=== PATIENT | male | born 1990 | race Caucasian/White ===

== ENCOUNTER 2021-10-13 12:27 | Outpatient (REF) | payer OTHER, SELFPAY ==
[2021-10-13 14:14] LABS: Microalbum/Creatinine Ratio Ur 8.2 ug/mg cr
[2021-10-13 14:21] LABS: Alanine Aminotransferase 15 U/L (0-40); Albumin Level 4.7 g/dL (3.5-5.0); Alkaline Phosphatase 41 U/L (39-117); Anion Gap 17 (12-20); Aspartate Amino Transferase 13 U/L (5-37); Bilirubin Total 0.9 mg/dL (0.0-1.0); Blood Urea Nitrogen 19 mg/dL (9-16); Calcium 9.7 mg/dL (8.4-10.2); Carbon Dioxide 23 mmol/L (22-29); Chloride 105 mmol/L (96-108); Cholesterol 184 mg/dL; Estimated Glomerular Filt Rate > 60; Glucose Fasting 91 mg/dL (60-99); HDL Cholesterol 45 mg/dL; LDL Cholesterol Calculated 126 mg/dl; Potassium 4.7 mmol/L (3.3-5.1); Sodium 140 mmol/L (135-145); Total Protein 7.2 g/dL (6.5-8.0); Triglycerides 67 mg/dL
[2021-10-13 14:35] LABS: Syphilis Screen Nonreactive (Nonreactive)
[2021-10-13 14:42] LABS: TSH reflex Free T4 0.56 uIU/mL (0.32-4.0)
[2021-10-16 04:42] LABS: HBS Num1 5.55 mIU/mL (0-7.99); HBc Num1 0.06 S/CO (0.00-0.79); HBsAGNum1 0.27 S/CO (0.00-0.99); HIV AB/AG Nonreactive (Nonreactive); HIV Num 1 0.08 S/CO (0.00-0.99); Hepatitis B Core Antibody Nonreactive (Nonreactive); Hepatitis B Surface Antigen Negative (Negative); ~HepC Num1 0.09 S/CO (0.00-0.79); ~Hepatitis B Surface Antibody NONREACTIVE (Nonreactive); ~Hepatitis C Antibody Nonreactive (Nonreactive)
== END 2021-10-13 12:28 | disposition home or self-care (01) ==
LOC: HO.WFDLDS 12:27
PROVIDERS: Visit Provider Family Medicine
DX: Z00.00 Encounter for general adult medical examination without abnormal findings (principal); Z11.4 Encounter for screening for human immunodeficiency virus [HIV]; Z11.3 Encounter for screening for infections with a predominantly sexual mode of transmission; I10 Essential (primary) hypertension
CPT/HCPCS: 36415; 80053; 80061; 82043; 84443; 86704; 86706; 86780; 86803; 87340; 87389

== ENCOUNTER 2022-10-23 16:29 | Outpatient (AMB) | payer OTHER, SELFPAY ==
--- NOTE | 2022-10-23 16:38 | MHC.PC.OV ---
Vital Signs 10/23/22 16:39 Height 5 ft 11 in Weight 283 lb 2 oz BMI 39.5 BP 124/74 Blood Pressure Location Lt brachial Position Sitting Pulse 83 Pulse Source Pulse Oximeter Pulse Oximetry (%) 96 Oxygen Delivery Method Room Air Intake Visit Reasons: f/u hypertension and chronic conditions Intake Note: Patient is here to follow up on hypertension and chronic conditions. Patient is concerned about white spot on back of neck after 2 sunburns. Allergies No Known Allergies [No Known Allergies*] Allergy (Verified 10/23/22 16:40) Tobacco use date assessed: 10/23/22 Dental Screening Dental Screen Date: 10/23/22 Did you have a dental visit in the last 12 months?: No Did you have a dental problem in the last 6 months where you did not have access to dental care?: No Was dental information given to patient?: No HPI f/u hypertension and chronic conditions HPI Details 32 y/o male presents to f/u hypertension. Blood pressure today is 124/74. He is on lisinopril 20mg daily. Pt reports a spot on the back of his neck that has been bothering him. [facility] Surgical History No pertinent past surgical history Social History Housing: Apartment Patient Tobacco Use Status: Never used Tobacco e-Cigarette/Vaping Use: Never Used Second Hand Smoke Exposure: No service: No Current occupational status: employed Current occupational exposures/hazards: No Cognitive needs: No Hearing needs: No Vision needs: No Questionnaire PHQ-9 Over the last 2 weeks, how often have you been bothered by any of the following problems? 1. Little interest or pleasure in doing things: not at all 2. Feeling down, depressed, or hopeless: not at all 3. Trouble falling or staying asleep, or sleeping too much: not at all 4. Feeling tired or having little energy: several days 5. Poor appetite or overeating: not at all 6. Feeling bad about yourself - or that you are a failure or have let yourself or your family down: not at all 7. Trouble concentrating on things, such as reading the newspaper or watching television: not at all 8. Moving or speaking so slowly that other people could have noticed. Or the opposite - being so fidgety or restless that you have been moving around a lot more than usual: not at all 9. Thoughts that you would be better off or of hurting yourself in some way: not at all Total score: 1 Source: Developed by Drs. Stone Pabon, Brigid Friedman, Jj Barrientos and colleagues, with an educational mary from [employer]. Thrive Questionnaire Date Thrive assessed: 02/02/22 LANNY-7 AMB Questionnaire LANNY-7 Date LANNY - 7 assessed: 05/10/21 Feeling nervous, anxious, or on edge: 1 = Several days Not being able to stop or control worryin = Not at all Worrying too much about different things: 0 = Not at all Trouble relaxin = Not at all Being so restless that it is hard to sit still: 0 = Not at all Becoming easily annoyed or irritable: 0 = Not at all Feeling afraid as if something awful might happen: 0 = Not at all Total LANNY-7 score (0-4 normal; 5-9 mild; 10-14 moderate; 15-21 severe): 1 Source: Developed by Drs. Stone Pabon, Brigid Friedman, Jj Barrientos and colleagues, with an educational mary from [employer]. Review of Systems Const Denies chills, Denies fatigue, Denies fever(s), Denies headache(s) and Denies weakness ENT Denies dizziness and Denies headache(s) Card Denies chest pain, Denies lightheadedness, Denies dyspnea and Denies other (Palpitations) Resp Denies cough, Denies dyspnea, Denies wheezing and Denies other ( shortness of breath) Musc Denies numbness and Denies tingling Neuro Denies dizziness, Denies headache(s), Denies numbness, Denies tingling, Denies paresthesias and Denies weakness Psych Denies anxiety and Denies depression Endo Denies fatigue Aller/Immun Denies wheezing Physical exam (Primary Care) Vital Signs: Last Vital Signs Pulse 83 10/23/22 16:39 BP 124/74 10/23/22 16:39 Pulse Ox 96 10/23/22 16:39 Oxygen Delivery Method Room Air 10/23/22 16:39 BMI result Body Mass Index 39.5 Tobacco/Smoking Status: Tobacco use Status Tobacco use date assessed 10/23/22 10/23/22 16:43 Patient Tobacco Use Status Never used Tobacco 10/23/22 16:43 e-Cigarette/Vaping Use Never Used 10/23/22 16:43 PHQ-9: PHQ-9 Score PHQ-9: Total score 1 10/23/22 17:19 Thrive Assessment: Date of Thrive Assessment Date Thrive assessed 02/02/22 10/23/22 16:43 Const General: no acute distress and well developed Nutritional Appearance: well nourished Orientation/consciousness: patient oriented x3 HENMT Head: Yes normocephalic and Yes atraumatic Eyes General: appearance normal, both eyes and all related structures Pupils: Equal, round and reactive pupils present EOM: EOMs intact bilaterally Resp Effort & Inspection: normal respiratory effort Auscultation: clear to auscultation bilaterally Cardio Rate: regular rate Rhythm: regular rhythm Heart sounds: S1 normal heart sound present, S2 normal heart sound present, no gallops, no murmurs and no rubs Neuro General: patient oriented x3 and gait normal Cranial nerves: Yes Equal, round and reactive pupils present Psych Affect: normal affect Assessment and Plan Assessment & Plan (1) Essential hypertension: Code(s): I10 - Essential (primary) hypertension Plan: Blood pressure is controlled. Goal is less than 140/90 Continue current medication (2) Difficulty sleeping: Code(s): G47.9 - Sleep disorder, unspecified Plan: Controlled with trazodone Continue trazodone. (3) Sebaceous cyst: Code(s): L72.3 - Sebaceous cyst Plan: Can use warm compresses. He will let me know if this worsens/changes in any way. Medications: Changed From lisinopril 20 mg PO DAILY 30 tabs 0RF I10 - Essential (primary) hypertension To lisinopril 20 mg PO DAILY 90 tabs 2RF 90 days I10 - Essential (primary) hypertension Coding Level of Care Code Est Pt Level 4 (98218) Diagnoses Essential hypertension I10 Difficulty sleeping G47.9 Sebaceous cyst L72.3
[2022-10-23 16:39] VITALS: BP 124/74; PULSE 83; O2SAT 96; BMI 39.5
== END 2022-10-23 17:26 | disposition home or self-care (01) ==
PROVIDERS: PCP Family Medicine; Visit Provider Family Medicine
DX: I10 Essential (primary) hypertension (principal); G47.9 Sleep disorder, unspecified; L72.3 Sebaceous cyst
CPT/HCPCS: 99214

== ENCOUNTER 2023-04-16 11:55 | Outpatient (AMB) | payer OTHER, SELFPAY ==
[2023-04-16 12:05] VITALS: BP 138/74; PULSE 78; O2SAT 98; BMI 39.6
--- NOTE | 2023-04-16 12:05 | A.OFFPC_ITS ---
Vital Signs 04/16/23 12:05 Height 5 ft 11 in Weight 284 lb BMI 39.6 BP 138/74 Blood Pressure Location Lt brachial Position Sitting Pulse 78 Pulse Source Pulse Oximeter Pulse Oximetry (%) 98 Oxygen Delivery Method Room Air Intake Visit Reasons: pain in groin,blood in urine Intake Note: Patient is here with discomfort, and blood with urination. Last night, symptoms started, the blood was kind of clotted, too. Allergies No Known Allergies [No Known Allergies*] Allergy (Verified 04/16/23 12:07) Tobacco use date assessed: 04/16/23 HPI pain in groin,blood in urine HPI Details 33 y/o male presents with complaints of pain in groin and blood in urine. Pt reports symptoms started last night but had been having discomfort for 4 weeks now. Pt reports pain at the end of urination and pain at the tip of the penis. He describes blood in urine. [facility] Surgical History No pertinent past surgical history Social History Housing: Apartment Patient Tobacco Use Status: Never used Tobacco e-Cigarette/Vaping Use: Never Used Second Hand Smoke Exposure: No service: No Current occupational status: employed Current occupational exposures/hazards: No Cognitive needs: No Hearing needs: No Vision needs: No Questionnaire PHQ-9 Over the last 2 weeks, how often have you been bothered by any of the following problems? 1. Little interest or pleasure in doing things: not at all 2. Feeling down, depressed, or hopeless: not at all 3. Trouble falling or staying asleep, or sleeping too much: not at all 4. Feeling tired or having little energy: not at all 5. Poor appetite or overeating: not at all 6. Feeling bad about yourself - or that you are a failure or have let yourself or your family down: not at all 7. Trouble concentrating on things, such as reading the newspaper or watching television: not at all 8. Moving or speaking so slowly that other people could have noticed. Or the opposite - being so fidgety or restless that you have been moving around a lot more than usual: not at all 9. Thoughts that you would be better off or of hurting yourself in some way: not at all Total score: 0 Source: Developed by Drs. Stone Pabon, Brigid Friedman, Jj Barrientos and colleagues, with an educational mary from [employer]. Thrive Questionnaire Date Thrive assessed: 02/02/22 AUDIT C Alcohol Use Questionnaire (AUDIT-C) 1. How often do you have a drink containing alcohol?: 2-3 times a week 2. How many drinks containing alcohol do you have on a typical day when you are drinking?: 1 or 2 3. How often do you have six or more drinks on one occasion?: Never Total Score: 3 LANNY-7 AMB Questionnaire LANNY-7 Date LANNY - 7 assessed: 04/16/23 Feeling nervous, anxious, or on edge: 0 = Not at all Not being able to stop or control worryin = Not at all Worrying too much about different things: 0 = Not at all Trouble relaxin = Not at all Being so restless that it is hard to sit still: 0 = Not at all Becoming easily annoyed or irritable: 0 = Not at all Feeling afraid as if something awful might happen: 0 = Not at all Total LANNY-7 score (0-4 normal; 5-9 mild; 10-14 moderate; 15-21 severe): 0 Source: Developed by Drs. Stone Pabon, Brigid Friedman, Jj Barrientos and colleagues, with an educational mary from [employer]. Physical exam (Primary Care) Vital Signs: Last Vital Signs Pulse 78 04/16/23 12:05 BP 138/74 04/16/23 12:05 Pulse Ox 98 04/16/23 12:05 Oxygen Delivery Method Room Air 04/16/23 12:05 BMI result Body Mass Index 39.6 Tobacco/Smoking Status: Tobacco use Status Tobacco use date assessed 04/16/23 04/16/23 12:08 Patient Tobacco Use Status Never used Tobacco 04/16/23 12:08 e-Cigarette/Vaping Use Never Used 04/16/23 12:08 PHQ-9: PHQ-9 Score PHQ-9: Total score 0 04/16/23 12:13 Thrive Assessment: Date of Thrive Assessment Date Thrive assessed 02/02/22 04/16/23 12:08 Results AMB Urinalysis Dipstick UR Leukocytes Negative Last Edit by Janae Hooper CMA on 04/16/23 12:23 UR Nitrite Negative Last Edit by Janae Hooper CMA on 04/16/23 12:23 UR Urobilinogen Normal Last Edit by Janae Hooper CMA on 04/16/23 12:23 UR Protein 100 Last Edit by Janae Hooper CMA on 04/16/23 12:23 UR Ph 7.0 Last Edit by Janae Hooper CMA on 04/16/23 12:23 UR Blood Hemolyzed Last Edit by Janae Hooper CMA on 04/16/23 12:23 UR Specific [place] 1.020 Last Edit by Janae Hooper CMA on 04/16/23 12:2 3 UR Ketone Negative Last Edit by Janae Hooper CMA on 04/16/23 12:23 UR Bilirubin Negative Last Edit by Janae Hooper CMA on 04/16/23 12:23 UR Glucose Negative Last Edit by Janae Hooper CMA on 04/16/23 12:23 Assessment and Plan Assessment & Plan (1) Hematuria: Code(s): R31.9 - Hematuria, unspecified Plan: Gross?hematuria?with?clots?at?home. Urine?dipstick?today?somewhat?unremarkable. Given?symptoms?of?discomfort?and?blood?however,?will?send?urine?for?analysis. Start?patient?on?antibiotic?and?give?him?Flomax.??Increase?hydration.??Likely?st one. He?will?go?to?the?ED?if?having?worsening?symptoms. Follow-up?next?week. May?need?imaging?or?referral?to?urology. (2) Dysuria: Code(s): R30.0 - Dysuria Orders: Orders Urine Dipstick Today R31.9 - Hematuria, unspecified UA and rflx microscopic Today R31.9 - Hematuria, unspecified, Z00.00 - Encounter for general adult medical examination without abnormal findings AMB Urinalysis Dipstick Today R31.9 - Hematuria, unspecified Urine Culture Today R31.9 - Hematuria, unspecified Urine Cytology Today R31.9 - Hematuria, unspecified Medications: New sulfamethoxazole-trimethoprim 800-160 mg (Bactrim DS) 1 tab PO Q12H 7 days 14 tabs 0RF tamsulosin (Flomax) 0.4 mg PO DAILY 7 days 7 caps 0RF Coding Level of Care Code Est Pt Level 3 (58594) Diagnoses Hematuria R31.9 Dysuria R30.0
== END 2023-04-16 12:34 | disposition home or self-care (01) ==
PROVIDERS: PCP Family Medicine; Visit Provider Family Medicine
DX: R31.9 Hematuria, unspecified (principal); R30.0 Dysuria
CPT/HCPCS: 81002; 99213

== ENCOUNTER 2023-04-16 12:04 | Outpatient (REF) | payer OTHER, SELFPAY ==
[2023-04-16 15:48] LABS: Appearance Urine Clear; Color Urine Yellow; Glucose Urine UA Negative (Negative); Leukocyte Esterase Urine Negative (Negative); Nitrite Urine Negative (Negative); UMIC TRIGGER UA YES; Urine Blood Trace (Negative); Urine Ketones Negative (Negative); Urine Protein 30 (1+) mg/dL (Neg-Trace)
[2023-04-16 16:31] LABS: RBC Urine 0-2 /HPF (0-2)
[2023-04-16 16:32] LABS: Bacteria Urine 1+ (None Seen); Hyaline Casts Urine 0-2 /LPF (0-2)
[2023-04-17 07:09] LABS: Urine Cytology See Pathology rpt
== END 2023-04-16 12:05 | disposition home or self-care (01) ==
LOC: HO.LAB 12:04
PROVIDERS: Visit Provider Family Medicine
DX: R31.9 Hematuria, unspecified (principal)
CPT/HCPCS: 81001; 87086; 88112

== ENCOUNTER 2023-04-24 13:45 | Outpatient (AMB) | payer SELFPAY ==
[2023-04-24 13:57] VITALS: BP 120/66; PULSE 69; O2SAT 97; BMI 42.0
--- NOTE | 2023-04-24 13:57 | MHC.PC.OV ---
Vital Signs 04/24/23 13:57 Height 5 ft 11 in Weight 301 lb BMI 42.0 BP 120/66 Blood Pressure Location Lt brachial Position Sitting Pulse 69 Pulse Source Pulse Oximeter Pulse Oximetry (%) 97 Oxygen Delivery Method Room Air Intake Visit Reasons: f/u hematuria/dysuria Intake Note: Patient is here to follow up on hematuria/dysuria, states he is feeling better since the last time we saw him. Allergies No Known Allergies [No Known Allergies*] Allergy (Verified 04/24/23 13:59) Tobacco use date assessed: 04/24/23 HPI f/u hematuria/dysuria HPI Details 33 y/o male presents to f/u hematuria/dysuria. Urine studies negative for infection. Urine cytology negative. Pt reports hematuria has resolved. PFSH Surgical History No pertinent past surgical history Social History Housing: Apartment Patient Tobacco Use Status: Never used Tobacco e-Cigarette/Vaping Use: Never Used Second Hand Smoke Exposure: No service: No Current occupational status: employed Current occupational exposures/hazards: No Cognitive needs: No Hearing needs: No Vision needs: No Questionnaire Thrive Questionnaire Date Thrive assessed: 02/02/22 LANNY-7 AMB Questionnaire LANNY-7 Date LANNY - 7 assessed: 04/16/23 Source: Developed by Drs. Stone Pabon, Brigid Friedman, Jj Barrientos and colleagues, with an educational mary from [employer]. Physical exam (Primary Care) Vital Signs: Last Vital Signs Pulse 69 04/24/23 13:57 BP 120/66 04/24/23 13:57 Pulse Ox 97 04/24/23 13:57 Oxygen Delivery Method Room Air 04/24/23 13:57 BMI result Body Mass Index 42.0 Tobacco/Smoking Status: Tobacco use Status Tobacco use date assessed 04/24/23 04/24/23 14:02 Patient Tobacco Use Status Never used Tobacco 04/24/23 14:02 e-Cigarette/Vaping Use Never Used 04/24/23 14:02 Thrive Assessment: Date of Thrive Assessment Date Thrive assessed 02/02/22 04/24/23 14:02 Assessment and Plan Assessment & Plan (1) Hematuria: Code(s): R31.9 - Hematuria, unspecified Plan: Single?episode?of?hematuria. Urine?studies?negative?for?infection Urine?cytology?negative Unclear?cause?but?hematuria?has?resolved. Possibly?passed?a?stone.??No?further?symptoms.??He?can?discontinue?Flomax.??I?advised?he?continue?hydrating?well. He?can?call?or?return?to?office?if?any?new?symptoms. (2) Dysuria: Code(s): R30.0 - Dysuria Plan: Patient?had?some?discomfort?at?the?tip?of?his?penis Urine?studies?negative?for?infection Symptoms?have?resolved Call?or?return?to?office?if?symptoms?resume Coding Level of Care Code Est Pt Level 3 (52181) Diagnoses Hematuria R31.9 Dysuria R30.0
== END 2023-04-24 15:04 | disposition home or self-care (01) ==
PROVIDERS: PCP Family Medicine; Visit Provider Family Medicine
DX: R31.9 Hematuria, unspecified (principal); R30.0 Dysuria
CPT/HCPCS: 99213

== ENCOUNTER 2024-04-07 12:11 | Outpatient (AMB) | payer OTHER, SELFPAY ==
[2024-04-07 12:37] VITALS: BP 148/90; PULSE 84; O2SAT 97; BMI 42.2
--- NOTE | 2024-04-07 12:37 | MHC.OFFWIV ---
Intake Vital Signs 04/07/24 12:37 Height 5 ft 11 in Weight 302 lb 4 oz BMI 42.2 BP 148/90 H Blood Pressure Location Lt brachial Position Sitting Pulse 84 Pulse Source Pulse Oximeter Pulse Oximetry (%) 97 Oxygen Delivery Method Room Air Intake Visit Reasons: EP WC back pain, hurt at work Intake Note: Pt presents to the office today for c/o back pain x5 days after turning and bending at work. Patient Tobacco Use Status: Never used Tobacco Allergies No Known Allergies [No Known Allergies*] Allergy (Verified 04/07/24 12:43) HPI HPI Comments History of Present Illness Details History of Present Illness - The patient is a 34-year-old male presenting with acute low back pain and potential lumbar radiculopathy. - Pain onset was five days ago following a physical maneuver at work, characterized by bending and turning, resulting in sharp, acute pains across the lower back. - Symptoms include episodic sharp, shooting pain radiating to the legs and central back area with no prior history of similar episodes. - Alleviating factors have been ibuprofen and topical analgesics with varying degrees of temporary effectiveness. - There are no accompanying bladder or bowel disturbances. Physical Exam General: Cooperative, healthy appearing, comfortable, no acute distress and well developed Orientation: Patient oriented x3 Limitations: Limited mobility and lots of sharp pains Head: Normal to inspection Ears: Hearing grossly normal bilaterally Nose: Normal external nose present Face and sinus: Normal facial exam Eyes: Appearance normal, both eyes and all related structures Neck: Normal visual inspection and Yes full ROM Respiratory: Normal respiratory effort and able to speak in complete sentences. Skin: No rashes or lesions noted Neuro: Patient oriented x3 Extremities: Normal to inspection [facility] Surgical History No pertinent past surgical history Social History Housing: Apartment Patient Tobacco Use Status: Never used Tobacco e-Cigarette/Vaping Use: Never Used Second Hand Smoke Exposure: No service: No Current occupational status: employed Current occupational exposures/hazards: No Cognitive needs: No Hearing needs: No Vision needs: No Review of Systems Const All systems reviewed & are unremarkable except as noted in HPI and below Physical Exam Vital Signs: Last Vital Signs Pulse 84 04/07/24 12:37 BP 148/90 H 04/07/24 12:37 Pulse Ox 97 04/07/24 12:37 Oxygen Delivery Method Room Air 04/07/24 12:37 BMI result Body Mass Index 42.2 Back/Spine/Pelvis Cervical Spine: cervical ROM normal, No cervical muscular tenderness and No Cervical spine tenderness Thoracic/Lumbar Spine: paraspinal muscle tenderness bilaterally, No thoracic spinal tenderness and No lumbar spinal tenderness Assessment & Plan Assessment & Plan (1) Low back pain: Code(s): M54.50 - Low back pain, unspecified Qualifiers: Chronicity: acute Back pain laterality: bilateral Sciatica presence: with sciatica Sciatica laterality: bilateral sciatica Qualified Code(s): M54.42 - Lumbago with sciatica, left side; M54.41 - Lumbago with sciatica, right side Plan: Will write work note for 5 days. Plan The treatment plan for the patient's acute low back pain with potential lumbar radiculopathy includes a short course of prednisone to address inflammation and when that is complete, he should start Aleve PRN for continued pain management. The patient is instructed not to overlap these medications to avoid adverse effects such as GI bleeding but he does not have a history of this so less likely to be an issue. A muscle relaxant is prescribed for night-time use to manage associated muscle spasms, with guidance to avoid activities requiring alertness. Topical treatments like Icy Hot can be used as necessary. The patient is informed of the importance of monitoring for any changes in bladder or bowel function that would necessitate emergency care. An evaluation for potential workplace injury and communication with his employer is advised to facilitate appropriate occupational health intervention. A note for recent work absences will be provided with an option for extended duration to be coordinated with his primary care provider. Patient was informed and verbally consented to the use of an ambient scribe for clinic note documentation during this visit. Medications: New prednisone 40 mg (2 x 20 mg) PO DAILY 10 tabs 0RF cyclobenzaprine 5 mg PO Q8H PRN 10 tabs 0RF Muscle Spasm Coding Level of Care Code Est Pt Level 3 (04536) Diagnoses Acute bilateral low back pain with bilateral sciatica M54.42; M54.41 Chronicity: acute Back pain laterality: bilateral Sciatica presence: with sciatica Sciatica laterality: bilateral sciatica
== END 2024-04-07 13:47 | disposition home or self-care (01) ==
PROVIDERS: PCP Family Medicine; Visit Provider Physician Assistant
DX: M54.42 Lumbago with sciatica, left side (principal); M54.41 Lumbago with sciatica, right side

== ENCOUNTER → 2024-04-07 12:11 | Outpatient (BNVA) | payer OTHER, SELFPAY | PROVIDERS: PCP Family Medicine; Visit Provider Physician Assistant | DX: M54.42 Lumbago with sciatica, left side (principal); M54.41 Lumbago with sciatica, right side | CPT/HCPCS: 99212 ==

== ENCOUNTER 2024-06-08 11:27 | Outpatient (AMB) | payer OTHER, SELFPAY ==
--- NOTE | 2024-06-08 12:34 | A.OFFPC_ITS ---
Vital Signs 06/08/24 12:37 Height 5 ft 11 in Weight 307 lb 4 oz BMI 42.8 BP 160/90 H Blood Pressure Location Rt brachial Position Sitting Respiration 14 Pulse 75 Pulse Source Pulse Oximeter Temp 98.9 F Temp Source Oral Pulse Oximetry (%) 97 Oxygen Delivery Method Room Air Intake Visit Reasons: back pain clearance Intake Note: Patient is scheduled to follow up for workers comp due to a back injury at work Credit Rating Checker Required: No Allergies No Known Allergies [No Known Allergies*] Allergy (Verified 06/08/24 12:35) Medication List - Last Reconciled 06/08/24 by Stephan Miller MD cyclobenzaprine 5 mg PO Q8H PRN lisinopril 20 mg PO DAILY 90 days prednisone 40 mg (2 x 20 mg) PO DAILY trazodone 1-1.5 tabs orally bedtime PRN; 30 days Tobacco use date assessed: 04/24/23 Dental Screening Dental Screen Date: 10/23/22 HPI back pain clearance HPI Details 34 y/o male presents to f/u low back cheryl n, potential lumbar radiculopathy. Had seen the walk-in for this 04/07/24. Was given prednisone, cyclobenzaprine. Blood pressure today elevated at 160/90, 75p. He is on lisinopril 20mg daily. Back injury at work 04/03/24. Sweeping and turned wrong . Couldn't move for 3 days. Went to walk-in 04/07/24. Given steroid and muscle relaxer. Slowly improved. Now doing well. R thigh numbness HPI Comments History of Present Illness Details Documentation assistance for Stephan Miller MD, was provided by David Varner,? Sewer And Drain Technician on 06/08/2024 at 12:45 PM EST. I, Dr. Miller, have read, observed, and verified documentation. ?? [facility] Surgical History No pertinent past surgical history Social History Housing: Apartment Patient Tobacco Use Status: Never used Tobacco e-Cigarette/Vaping Use: Never Used Second Hand Smoke Exposure: No service: No Current occupational status: employed Current occupational exposures/hazards: No Cognitive needs: No Hearing needs: No Vision needs: No Questionnaire PHQ-9 Over the last 2 weeks, how often have you been bothered by any of the following problems? 1. Little interest or pleasure in doing things: not at all 2. Feeling down, depressed, or hopeless: not at all 3. Trouble falling or staying asleep, or sleeping too much: not at all 4. Feeling tired or having little energy: not at all 5. Poor appetite or overeating: not at all 6. Feeling bad about yourself - or that you are a failure or have let yourself or your family down: not at all 7. Trouble concentrating on things, such as reading the newspaper or watching television: not at all 8. Moving or speaking so slowly that other people could have noticed. Or the opposite - being so fidgety or restless that you have been moving around a lot more than usual: not at all 9. Thoughts that you would be better off or of hurting yourself in some way: not at all Total score: 0 Depression Screening Interpretation: Negative Depression Screening Done: Yes 74618 - PHQ-9 Billing: Yes Source: Developed by Drs. Stone Pabon, Brigid Friedman, Jj Barrientos and colleagues, with an educational mary from [employer]. Thrive Questionnaire Date Thrive assessed: 06/08/24 I am a: Patient What is your living situation today?: I have a steady place to live Within the past 12 months, did the food you bought not last and you didn't have the money to get more?: Never true Within the past 12 months, did you worry whether your food would run out before you got money to buy more?: Never true Do you have trouble paying for medicines?: No Do you have trouble getting transportation to medical appointments?: No Do you have trouble paying your heating and electricity bill?: No Do you have trouble taking care of your child, family member or friend?: No Do you have trouble with day-to-day activities such as bathing, preparing meals, shopping, managing finances, etc.?: No Are you currently unemployed and looking for a job?: No Are you interested in more education?: No Please select the resources that you would like help with: None Currently or been in a relationship where the following occur: No concerns reported THRIVE Score: 0 AUDIT C Alcohol Use Questionnaire (AUDIT-C) 1. How often do you have a drink containing alcohol?: 2-4 times a month 2. How many drinks containing alcohol do you have on a typical day when you are drinking?: 3 or 4 3. How often do you have six or more drinks on one occasion?: Never Total Score: 3 Score Reviewed/Action Taken: Yes LANNY-7 AMB Questionnaire LANNY-7 Date LANNY - 7 assessed: 06/08/24 Feeling nervous, anxious, or on edge: 0 = Not at all Not being able to stop or control worryin = Not at all Worrying too much about different things: 0 = Not at all Trouble relaxin = Not at all Being so restless that it is hard to sit still: 0 = Not at all Becoming easily annoyed or irritable: 0 = Not at all Feeling afraid as if something awful might happen: 0 = Not at all Total LANNY-7 score (0-4 normal; 5-9 mild; 10-14 moderate; 15-21 severe): 0 Source: Developed by Drs. Stone Pabon, Brigid Friedman, Jj Barrientos and colleagues, with an educational mary from [employer]. LANNY-7 Assessment Billing LANNY-7 Assessment Tool: LANNY-7 Assessment 62824 Review of Systems Const Denies chills, Denies fatigue, Denies fever(s), Denies headache(s) and Denies weakness ENT Denies dizziness and Denies headache(s) Card Denies dyspnea Resp Denies cough, Denies dyspnea, Denies wheezing and Denies other (shortness of breath) Musc Reports back pain, Denies numbness and Denies tingling Neuro Denies dizziness, Denies headache(s), Denies numbness, Denies tingling and Denies weakness Psych Denies anxiety and Denies depression Endo Denies fatigue Aller/Immun Denies wheezing Physical exam (Primary Care) Vital Signs: Last Vital Signs Temp 98.9 F 06/08/24 12:37 Pulse 75 06/08/24 12:37 Resp 14 06/08/24 12:37 BP 160/90 H 06/08/24 12:37 Pulse Ox 97 06/08/24 12:37 Oxygen Delivery Method Room Air 06/08/24 12:37 BMI result Body Mass Index 42.8 Tobacco/Smoking Status: Tobacco use Status Tobacco use date assessed 04/24/23 06/08/24 12:40 Patient Tobacco Use Status Never used Tobacco 06/08/24 12:40 e-Cigarette/Vaping Use Never Used 06/08/24 12:40 PHQ-9: PHQ-9 Score PHQ-9: Total score 0 06/08/24 12:40 Depression Screening Interpretation: Negative Thrive Assessment: Date of Thrive Assessment Date Thrive assessed 06/08/24 06/08/24 12:40 Currently or been in a relationship where the following occur: No concerns reported Const General: well developed; No acute distress Nutritional Appearance: well nourished Orientation/consciousness: patient oriented x3 HENMT Head: Yes normocephalic and Yes atraumatic Eyes General: appearance normal, both eyes and all related structures Pupils: Equal, round and reactive pupils present EOM: EOMs intact bilaterally Resp Effort & Inspection: normal respiratory effort Neuro General: patient oriented x3 and gait normal Cranial nerves: Yes Equal, round and reactive pupils present Psych Affect: normal affect Coding Level of Care Code Est Pt Level 4 (10400) Diagnoses Acute bilateral low back pain with bilateral sciatica M54.42; M54.41 Back pain laterality: bilateral Chronicity: acute Sciatica laterality: bilateral sciatica Sciatica presence: with sciatica Essential hypertension I10 Additional Codes LANNY-7 Assessment Billing - LANNY-7 Assessment Tool: LANNY-7 Assessment 24315 ([id number]) PHQ-9 - 80366 - PHQ-9 Billing: Yes ([id number]) Assessment & Plan Assessment & Plan (1) Low back pain: Code(s): M54.50 - Low back pain, unspecified Category: Medical Qualifiers: Back pain laterality: bilateral Chronicity: acute Sciatica laterality: bilateral sciatica Sciatica presence: with sciatica Qualified Code(s): M54.42 - Lumbago with sciatica, left side; M54.41 - Lumbago with sciatica, right side Plan: Recent?low?back?strain?treated?with?steroids?and?muscle?relaxants?and?has?mostly ?resolved. However?patient?does?note?that?he?still?gets?twinges?of?back?pain?in?strain.??Th jan?are?likely?related?to?weight?and?also?he?has?particular?job. Will?have?him?start?some?physical?therapy?and?check?x-ray. (2) Essential hypertension: Code(s): I10 - Essential (primary) hypertension Category: Medical Plan: Blood?pressure?is?much?too?high.??Goal?is?less?than?140/90 Changing?lisinopril?to?lisinopril?hydrochlorothiazide Hydrate?well He?will?come?back?this?week?for?a?nurse?visit?to?recheck?his?blood?pressure He?can?follow-up?with?me?in?a?few?months Orders: Orders PT Evaluation and Treatment Today M54.41 - Lumbago with sciatica, right side, M 54.42 - Lumbago with sciatica, left side XR lumbar spine 2-3V Today M54.41 - Lumbago with sciatica, right side, M54.42 - Lumbago with sciatica, left side Medications: New lisinopril-hydrochlorothiazide 20-12.5 mg 1 tab PO DAILY 90 days 90 tabs 3RF Discontinued lisinopril Discontinued Reason: Doctor's Order 20 mg PO DAILY 90 days 90 tabs 2RF I10 - Essential (primary) hypertension
[2024-06-08 12:37] VITALS: BP 160/90; PULSE 75; RESP 14; TEMP 37.2; O2SAT 97; BMI 42.8
== END 2024-06-08 13:05 | disposition home or self-care (01) ==
LOC: HO.HMCFM 11:28
PROVIDERS: PCP Family Medicine; Visit Provider Family Medicine
DX: M54.42 Lumbago with sciatica, left side (principal); M54.41 Lumbago with sciatica, right side; I10 Essential (primary) hypertension

== ENCOUNTER → 2024-06-08 11:27 | Outpatient (BNVA) | payer OTHER, SELFPAY | PROVIDERS: PCP Family Medicine; Visit Provider Family Medicine | DX: M54.41 Lumbago with sciatica, right side (principal); M54.42 Lumbago with sciatica, left side; I10 Essential (primary) hypertension | CPT/HCPCS: 96127; 99212 ==

== ENCOUNTER → 2024-06-22 15:39 | Outpatient (BNVA) | payer SELFPAY | PROVIDERS: PCP Family Medicine; Visit Provider Family Medicine | DX: Z13.89 Encounter for screening for other disorder (principal) ==

== ENCOUNTER 2025-01-15 15:06 | Outpatient (AMB) | payer OTHER, SELFPAY ==
--- NOTE | 2025-01-15 15:13 | MHC.PC.OV ---
Vital Signs 01/15/25 15:19 Height 5 ft 11 in Weight 298 lb 4 oz BMI 41.6 BP 130/72 Blood Pressure Location Rt brachial Position Sitting Respiration 18 Pulse 69 Pulse Source Pulse Oximeter Temp 98.2 F Temp Source Oral Pulse Oximetry (%) 95 Oxygen Delivery Method Room Air Intake Visit Reasons: f/u HTN, resched Intake Note: patient is scheduled to review htn with pcp Hardware Press Operator Required: No Allergies No Known Allergies (No Known Allergies*) Allergy (Verified 06/08/24 12:35) Tobacco use date assessed: 04/24/23 Dental Screening Dental Screen Date: 10/23/22 HPI f/u HTN, resched HPI Details 34 y/o male presents to f/u HTN. Had given him a script for lisinopril-hydrochlorothiazide. Blood pressure today is 130/72, 69p. [facility] Surgical History No pertinent past surgical history Social History Housing: Apartment Patient Tobacco Use Status: Never used Tobacco e-Cigarette/Vaping Use: Never Used Second Hand Smoke Exposure: No service: No Current occupational status: employed Current occupational exposures/hazards: No Cognitive needs: No Hearing needs: No Vision needs: No Questionnaire Thrive Questionnaire Date Thrive assessed: 06/08/24 I am a: Patient What is your living situation today?: I have a steady place to live Within the past 12 months, did the food you bought not last and you didn't have the money to get more?: Never true Within the past 12 months, did you worry whether your food would run out before you got money to buy more?: Never true Do you have trouble paying for medicines?: No Do you have trouble getting transportation to medical appointments?: No Do you have trouble paying your heating and electricity bill?: No Do you have trouble taking care of your child, family member or friend?: No Do you have trouble with day-to-day activities such as bathing, preparing meals, shopping, managing finances, etc.?: No Are you currently unemployed and looking for a job?: No Are you interested in more education?: No Please select the resources that you would like help with: None Currently or been in a relationship where the following occur: No concerns reported THRIVE Score: 0 LANNY-7 AMB Questionnaire LANNY-7 Date LANNY - 7 assessed: 06/08/24 Source: Developed by Drs. Stone Pabon, Brigid Friedman, Jj Barrientos and colleagues, with an educational mary from [employer]. Review of Systems Const Denies chills, Denies fatigue, Denies fever(s), Denies headache(s) and Denies weakness ENT Denies dizziness and Denies headache(s) Card Denies dyspnea Resp Denies cough, Denies dyspnea, Denies wheezing and Denies other (shortness of breath) Musc Denies numbness and Denies tingling Neuro Denies dizziness, Denies headache(s), Denies numbness, Denies tingling and Denies weakness Psych Denies anxiety and Denies depression Endo Denies fatigue Aller/Immun Denies wheezing Physical exam (Primary Care) Vital Signs: Last Vital Signs Temp 98.2 F 01/15/25 15:19 Pulse 69 01/15/25 15:19 Resp 18 01/15/25 15:19 BP 130/72 01/15/25 15:19 Pulse Ox 95 01/15/25 15:19 Oxygen Delivery Method Room Air 01/15/25 15:19 BMI result Body Mass Index 41.6 Tobacco/Smoking Status: Tobacco use Status Tobacco use date assessed 04/24/23 01/15/25 15:14 Patient Tobacco Use Status Never used Tobacco 01/15/25 15:14 e-Cigarette/Vaping Use Never Used 01/15/25 15:14 Thrive Assessment: Date of Thrive Assessment Date Thrive assessed 06/08/24 01/15/25 15:14 Currently or been in a relationship where the following occur: No concerns reported Const General: well developed; No acute distress Nutritional Appearance: well nourished Orientation/consciousness: patient oriented x3 HENMT Head: Yes normocephalic and Yes atraumatic Eyes General: appearance normal, both eyes and all related structures Pupils: Equal, round and reactive pupils present EOM: EOMs intact bilaterally Resp Effort & Inspection: normal respiratory effort Auscultation: clear to auscultation bilaterally Cardio Rate: regular rate Rhythm: regular rhythm Heart sounds: S1 normal heart sound present, S2 normal heart sound present, no gallops, no murmurs and no rubs Neuro General: patient oriented x3 and gait normal Cranial nerves: Yes Equal, round and reactive pupils present Psych Affect: normal affect Coding Level of Care Code Est Pt Level 3 (06416) Diagnoses Essential hypertension I10 Assessment & Plan Assessment & Plan (1) Essential hypertension: Code(s): I10 - Essential (primary) hypertension Category: Medical Plan: Blood pressure now controlled. Goal is less than 140/90 Had added hydrochlorothiazide in combo with his lisinopril Continue lisinopril-hydrochlorothiazide 20/12.5 mg daily Plan At last visit, patient had noted some lightheadedness after allowing himself to be somewhat dehydrated and using the bathroom and standing up quickly. Likely orthostatic and/or vasovagal response. Had advised good hydration He has had no further episodes
[2025-01-15 15:19] VITALS: BP 130/72; PULSE 69; RESP 18; TEMP 36.8; O2SAT 95; BMI 41.6
--- OUTSIDE RECORDS SUMMARY | 2025-01-15 15:25 | XMS_ITS | Clinical Summary ---
Author Organization [facility] Address [address] [place] [id number] Phone Care Team Providers Care Emission Specialist Name Role Phone Stephan Miller MD Primary Care Provider Allergies No known active allergies Medications No known medications Encounters Date Type Department Care Team Description 10/29/2024 8:40 AM EDT Office Visit [facility] [address] [address] Gracie Mckeon, CHARISSA Hordeolum internum of right upper eyelid (Primary Dx); Blepharitis of right upper eyelid, unspecified type from Last 3 Months Social History Tobacco Use Types Packs/Day Years Used Date Smoking Tobacco: Never Assessed Education Answer Date Recorded Are you interested in more education? Not on emerald e 10/29/2024 Are you concerned about learning? Not on file 10/29/2024 No 10/29/2024 No 10/29/2024 Digital Access Answer Date Recorded No 10/29/2024 No 10/29/2024 Reliable internet access at home? Not on file 10/29/2024 Device with a working camera? Not on file Sex and Gender Information Value Date Recorded Sex Assigned at Not on file Legal Sex Male 8:15 PM EDT Gender Identity Not on file Sexual Orientation Not on file Last Filed Vital Signs Vital Sign Reading Time Taken Comments Blood Pressure 142/92 10/29/2024 8:38 AM EDT Pulse 80 10/29/2024 8:38 AM EDT Temperature 36.3 C (97.3 F) 10/29/2024 8:38 AM EDT Respiratory Rate 17 10/29/2024 8:38 AM EDT Oxygen Saturation 98% 10/29/2024 8:38 AM EDT Inhaled Oxygen Concentration - - Weight - - Height - - Body Mass Index - - Plan of Treatment Health Maintenance Due Date Last Done Comments Adult Td,Tdap Booster 1989 LIPID PANEL 1989 DEPRESSION SCREENING 2001 SMOKING Hx and SMOKELESS TOB ACCO SCREENING 2002 HEPATITIS C SCREENING 2007 HIV ONE-TIME SCREENING (18-6 5 YEARS) 2007 INFLUENZA VACCINE (#1) 2024 COVID-19 VACCINE ( - 2024-2 6 season) 2024 HEPATITIS A VACCINES Aged Out No long er eligible based on patient's age to complete this topic HIB VACCINES Aged Out No longer eligi ble based on patient's age to complete this topic MENINGOCOCCAL VACCINES (ACWY) Aged Out No longer eligible based on patient's age to complete this topic MENINGOCOCCAL VACCINES (B) Aged Out N o longer eligible based on patient's age to complete this topic PNEUMOCOCCAL VACCINES (0-49 years) Aged Out No longer eligible based on patient's age to complete this topic Medical Devices Not on file Insurance [facility] POS UNITED POS UNITED POS [place] POS [place] Care Teams Emission Specialist Relationship Specialty Start Date End Date Stephan Miller MD PCP - General Family Medicine 10/29/24 Additional Source Comments The information contained in this document represents components of the legal health record. It is not the complete legal health record.[facility]
== END 2025-01-15 15:29 | disposition home or self-care (01) ==
LOC: HO.HMCFM 15:07
PROVIDERS: PCP Family Medicine; Visit Provider Family Medicine
DX: I10 Essential (primary) hypertension (principal)